=== PATIENT | female | born 1955 | race Two or more races ===

== ENCOUNTER → 2020-10-19 | Outpatient (CLI) | payer OTHER | END | disposition home or self-care (01) | LOC: CFH 09:29 → EDBD 09:29 | PROVIDERS: ATTEND Registered Nurse | DX: M17.0 Bilateral primary osteoarthritis of knee (principal); M25.462 Effusion, left knee; M25.461 Effusion, right knee ==

== ENCOUNTER 2020-12-10 19:25 | Emergency (ER) | payer OTHER ==
[~2020-12-10] VITALS: Ht 165.1 cm; Wt 91.0 kg
[2020-12-10 19:28] VITALS: BP 181/105
== END 2020-12-10 21:26 | disposition home or self-care (01) ==
LOC: ED 21:05
DX: M17.0 Bilateral primary osteoarthritis of knee (principal); G89.29 Other chronic pain; M25.561 Pain in right knee; M25.562 Pain in left knee
CPT/HCPCS: 99283